=== PATIENT | female | born 1975 | race Asian ===

== ENCOUNTER 2020-05-15 00:45 | Emergency (ER) | payer MEDICAID ==
--- NOTE | 2020-05-15 01:08 | EDM.PDOC ---
ED HPI GENERAL MEDICAL PROBLEM - General Chief Complaint: ENT Problem Stated Complaint: SOMETHING IN RIGHT EAR Time Seen by Provider: 05/15/20 00:55 - History of Present Illness INITIAL COMMENTS - FREE TEXT/NARRATIVE: HISTORY AND PHYSICAL: History of present illness: Is a 45-year-old [place] female who presents ER today complaining of foreign body sensation/bug in her right ear canal x1 to 2 days. Patient denies any rece nt fevers, shakes, chills, nausea, vomiting, diarrhea. Patient has no known drug allergies. Review of systems: As per history of present illness and below otherwise all systems reviewed and negative. Past medical history: As per history of present illness and as reviewed below otherwise noncontributory. Surgical history: As per history of present illness and as reviewed below otherwise nonc ontributory. Social history: No reported history of drug or alcohol abuse. Family history: As per history of present illness and as reviewed below otherwise noncontributory. Physical exam: Constitutional: Patient is oriented to person, place, and time. Appears well- developed and well-nourished. No distress. HEENT: Moist mucous membranes Head: Normocephalic and atraumatic Eyes: Right eye exhibits no discharge. Left eye exhibits no discharge. No scleral icterus Neck: Normal range of motion. No tracheal deviation present. Cardiovascular: Normal rate and regular rhythm. Pulmonary: Effort normal, no respiratory distress. Abdominal: No distention Musculoskeletal: Normal range of motion Neurologic: Alert and oriented to person, place and time. Skin: [place], warm and dry. Psychiatric: Normal mood and affect. Behavior is normal. Judgment and thought content normal. Nursing note and vital signs have been reviewed Patient's ER physical exam is significant for a small pustule inside her right ear canal at the 9 o'clock position. There is no foreign body identified. There is minuscule amount of wax within the ear canal. Patient's tympanic membrane is pearly mckenna without any erythema or evidence of infection. This patient was seen and evaluated during the 2019 SARS-CoV-2 novel coronavirus pandemic period. Community viral transmission is ongoing at time of this enc ounter and the emergency department is operating under pandemic response procedures. Assessment and plan: 45-year-old female who presents ER today concerned about foreign body sensation in her right ear. On exam it appears that the patient has a small pustule inside her right ear canal. Patient has no evidence of [place] syndrome. Patient will be treated for a pustule with Bactrim DS 2 tabs p.o. twice daily x10 days. Reassessment at the time of disposition demonstrates that the patient is in no acute distress. The patient has remained stable throughout the entire ED visit and is without objective evidence for acute process requiring urgent intervention or hospitalization. The patient is stable for discharge, counseling is provided as documented above, discussed symptomatic treatment and specific conditions for return. I have spoken with the patient/caregiver and discussed todays findings, in addition to providing specific details for the plan of care. Questions are answe red and there is agreement with the plan. Definitive disposition and diagnosis as appropriate pending reevaluation and review of above. - Related Data Allergies Allergy/AdvReac Type Severity Reaction Status Date / Time No Known Allergies Allergy Verified 05/15/20 01:01 Home Meds: Home Meds Sulfamethoxazole/Trimethoprim [Bactrim Ds Tablet] 2 each PO BID #40 tablet 05/15/20 [Rx] Past Medical History - Past Health History Medical/Surgical History: Denies Medical/Surgical History Social & Family History - Tobacco Use Tobacco Use Status *Q: Never Tobacco User Second Hand Smoke Exposure: No - Caffeine Use Caffeine Use: Reports: Soda - Recreational Drug Use Recreational Drug Use: No ED ROS GENERAL - Review of Systems Review Of Systems: See Below ED EXAM, GENERAL - Physical Exam Exam: See Below Course - Vital Signs Last Recorded V/S: Last Vital Signs Temp 97.9 F 05/15/20 00:59 Pulse 81 05/15/20 00:59 Resp 14 05/15/20 00:59 BP 108/66 05/15/20 00:59 Pulse Ox 98 05/15/20 00:59 - Orders/Labs/Meds Orders: Active Orders 24 hr Category Date Time Status Sulfamethoxazole/Trimethoprim [Septra DS] Med 05/15/20 01:04 Once 2 tab PO ONETIME ONE Departure - Departure Time of Disposition: 01:06 Disposition: Home, Self-Care 01 Clinical Impression: Abscess of skin and subcutaneous tissue Qualifiers: Site of cutaneous abscess: other site Qualified Code(s): L02.818 - Cutaneous abscess of other sites - Discharge Information Instructions: Skin Abscess Referrals: PCP,Not In Area [Primary Care Provider] - Additional Instructions: You were seen and evaluated in the ER today secondary to a foreign body sensation to your right ear canal. On exam there is no foreign body however there is a small pustule that is tender to palpation with the autoscope. Patient will be started on Bactrim DS 2 tablets twice a day for 10 days. Please follow-up with your family doctor in 1 week for reevaluation. The following information is given to patients seen in the emergency department who are being discharged to home. This information is to outline your options for follow-up care. We provide all patients seen in our emergency department with a follow-up referral. The need for follow-up, as well as the timing and circumstances, are variable depending upon the specifics of your emergency department visit. If you don't have a primary care physician on staff, we will provide you with a referral. We always advise you to contact your personal physician following an emergency department visit to inform them of the circumstance of the visit and for follow-up with them and/or the need for any referrals to a consulting specialist. The emergency department will also refer you to a specialist when appropriate. This referral assures that you have the opportunity for follow-up care with a specialist. All of these measure are taken in an effort to provide you with optimal care, which includes your follow-up. Under all circumstances we always encourage you to contact your private physician who remains a resource for coordinating your care. When calling for follow-up care, please make the office aware that this follow-up is from your recent emergency room visit. If for any reason you are refused follow-up, please contact the [facility] Emergency Department at and asked to speak to the emergency department charge nurse. [facility] - Primary Care [address] [place] [address] [id number] [address] [address] Sepsis Event Note (ED) - Evaluation Sepsis Screening Result: No Definite Risk - Focused Exam Vital Signs: Vital Signs Temp Pulse Resp BP Pulse Ox 05/15/20 00:59 97.9 F 81 14 108/66 98 - My Orders Last 24 Hours: My Active Orders 05/15/20 01:04 Sulfamethoxazole/Trimethoprim [Septra DS] 2 tab PO ONETIME ONE - Assessment/Plan Last 24 Hours: My Active Orders 05/15/20 01:04 Sulfamethoxazole/Trimethoprim [Septra DS] 2 tab PO ONETIME ONE
[2020-05-15] MEDS: Sulfamethoxazole/Trimethoprim 800-160 MG Tab PO ONE (01:12)
== END 2020-05-15 01:14 | disposition home or self-care (01) ==
LOC: MW.ED 00:45
DX: H66.41 Suppurative otitis media, unspecified, right ear (principal)
CPT/HCPCS: 99282; A9270

== ENCOUNTER 2021-07-11 13:01 | Observation (INO) | payer MEDICAID ==
[2021-07-11 13:54] LABS: BLOOD UREA NITROGEN,BUN 8 mg/dL (7.0-18.0); CARBON DIOXIDE,CO2 23.2 mmol/L (21.0-32.0); CHLORIDE,CL 100 mmol/L (98-107); GLUCOSE RANDOM 81 mg/dL (74-106); POTASSIUM,K 3.7 mmol/L (3.5-5.1); SODIUM,NA 136 mmol/L (136-145)
[2021-07-11] MEDS ORDERED: Sodium Chloride 0.9% 1,000 ML IV ONE (15:41)
[2021-07-11] MEDS ORDERED: Ondansetron 4 MG/2 ML SDV ONE (17:41)
[2021-07-11] MEDS ORDERED: fentaNYL 100 MCG/2 ML SDV ONE ×2 (17:41→18:47)
[2021-07-11] MEDS ORDERED: Propofol 200 MG/20 ML SDV ONE (17:41)
[2021-07-11] MEDS ORDERED: Sodium Chloride 0.9% 20 ML SDV IV PRN (17:41)
[2021-07-11] MEDS ORDERED: Sodium Chloride 0.9% 2.5 ML Syringe FLUSH PRN (17:41)
[2021-07-11] MEDS ORDERED: Dexamethasone 4 MG/ML 5 ML MDV ONE (17:41)
[2021-07-11] MEDS ORDERED: Sodium Chloride 0.9% 10 ML Syringe FLUSH PRN (17:41)
[2021-07-11] MEDS ORDERED: Midazolam 1 MG/ML 2 ML SDV ONE (17:41)
[2021-07-11] MEDS ORDERED: ceFAZolin 2 GM in Premix Bag 1 BAG IV ONE (17:41)
[2021-07-11] MEDS ORDERED: Lidocaine 1% 5 ML VIAL ONE (17:41)
[2021-07-11] MEDS ORDERED: Carboprost Tromethamine 250 MCG/1 ML Amp ONE (17:50)
[2021-07-11] MEDS ORDERED: Methylergonovine 0.2 MG/1 ML Amp ONE (17:51)
[2021-07-11] MEDS ORDERED: ePHEDrine 50 MG/ML SDV ONE (18:53)
[2021-07-11] MEDS ORDERED: Ketorolac 30 MG/ML SDV ONE (19:11)
[2021-07-11] MEDS ORDERED: Acetaminophen/HYDROcodone 325-5 MG Tab PO PRN ×2 (19:26)
[2021-07-11] MEDS ORDERED: Ketorolac 30 MG/ML SDV IVPUSH ONE (19:26)
[2021-07-11] MEDS ORDERED: Ondansetron 4 MG/2 ML SDV IVPUSH PRN (19:28)
[2021-07-11] MEDS ORDERED: Lactated Ringers 1,000 ML IV SCH (19:30)
[2021-07-12] MEDS ORDERED: Ibuprofen 800 MG Tab PO PRN (01:30)
[2021-07-12 06:58] LABS: BLOOD UREA NITROGEN,BUN 8 mg/dL (7.0-18.0); CARBON DIOXIDE,CO2 20.9 mmol/L (21.0-32.0); CHLORIDE,CL 102 mmol/L (98-107); GLUCOSE RANDOM 119 mg/dL (74-106); POTASSIUM,K 4.2 mmol/L (3.5-5.1); SODIUM,NA 136 mmol/L (136-145)
== END 2021-07-12 09:45 | disposition home or self-care (01) ==
LOC: MW.ED 13:01 → MW.OB 17:04
PROVIDERS: ADMIT Obstetrics & Gynecology; ATTEND Obstetrics & Gynecology
DX: O01.0 Classical hydatidiform mole (principal)
CPT/HCPCS: 36415; 59812; 71045; 76817; 80048; 80053; 84702; 84703; 85025; 86850; 86900; 86901; 86920; 99285; A9270; G0378; J0690; J1100; J2210; J2250; J2704; J3010; J7030; 01965; J1885; J2405

== ENCOUNTER 2021-08-26 12:43 | Emergency (ER) | payer MEDICAID ==
[2021-08-26] MEDS ORDERED: Sodium Chloride 0.9% 1,000 ML IV ONE (16:19)
[2021-08-26 17:02] LABS: BLOOD UREA NITROGEN,BUN 12 mg/dL (7.0-18.0); CHLORIDE,CL 103 mmol/L (98-107); GLUCOSE RANDOM 85 mg/dL (74-106); POTASSIUM,K 3.5 mmol/L (3.5-5.1); SODIUM,NA 136 mmol/L (136-145)
[2021-08-26] MEDS ORDERED: Iopamidol 755 MG/ML 500 ML Multipack Bottle IVPUSH STA (18:31)
== END 2021-08-26 19:42 | disposition home or self-care (01) ==
LOC: MW.ED 12:43
DX: O01.9 Hydatidiform mole, unspecified (principal)
CPT/HCPCS: 36415; 71260; 74177; 76830; 80053; 81001; 81025; 84702; 85025; 99284; Q9967

== ENCOUNTER 2022-07-01 15:01 | Emergency (ER) | payer BC, MEDICAID ==
[2022-07-01] MEDS ORDERED: Sodium Chloride 0.9% 2.5 ML Syringe FLUSH PRN (16:23)
[2022-07-01] MEDS ORDERED: Sodium Chloride 0.9% 10 ML Syringe FLUSH PRN (16:23)
[2022-07-01 17:34] LABS: CARBON DIOXIDE,CO2 27.9 mmol/L (21.0-32.0); POTASSIUM,K 3.9 mmol/L (3.5-5.1)
== END 2022-07-01 19:35 | disposition home or self-care (01) ==
LOC: MW.ED 15:01
DX: N64.4 Mastodynia (principal)
CPT/HCPCS: 36415; 71260; 74177; 80053; 81001; 85025; 99284; J3490; 99283

== ENCOUNTER 2023-02-19 20:18 | Emergency (ER) | payer MEDICAID ==
[2023-02-19 22:47] LABS: CORONAVIRUS COVID-19 NAA NEGATIVE (NEGATIVE); INFLUENZA A NAA NEGATIVE (NEGATIVE); INFLUENZA B NAA NEGATIVE (NEGATIVE); RESPIRATORY SYNCYTIAL VIR NAA NEGATIVE (NEGATIVE)
[2023-02-20] MEDS ORDERED: Sodium Chloride 0.9% 2.5 ML Syringe FLUSH PRN (00:06)
[2023-02-20] MEDS ORDERED: Sodium Chloride 0.9% 10 ML Syringe FLUSH PRN (00:06)
[2023-02-20] MEDS ORDERED: diphenhydrAMINE 50 MG Cap PO ONE (00:08)
[2023-02-20] MEDS ORDERED: Ibuprofen 600 MG Tab PO ONE (00:08)
[2023-02-20 01:27] LABS: A/G RATIO 0.8 (0.9-1.6); ALBUMIN 3.7 g/dL (3.4-5.0); BILIRUBIN TOTAL 0.3 mg/dL (0.2-1.0); CALCIUM 8.5 mg/dL (8.5-10.1); CARBON DIOXIDE,CO2 27.4 mmol/L (21.0-32.0); CREATININE 0.8 mg/dL (0.6-1.0); EST CRCL DRUG DOSING (CG) 63.12 mL/min; POTASSIUM,K 4.1 mmol/L (3.5-5.1); PROTEIN TOTAL,TP 8.2 g/dL (6.4-8.2)
[2023-02-20] MEDS ORDERED: Iopamidol 755 MG/ML 500 ML Multipack Bottle IVPUSH ONE (02:19)
[2023-02-20 02:25] LABS: HEMATOCRIT 37.9 % (37.0-47.0); HEMOGLOBIN 12.9 g/dL (12.0-16.0); MEAN CORPUSCULAR HEMOGLOBIN 29.9 pg (28.0-32.0); MEAN CORPUSCULAR VOLUME 87.7 fL (83.0-99.0); MEAN PLATELET VOLUME 8.9 fL (9.4-12.3); PLATELET COUNT,PLT 283 K/uL (150-400); RED BLOOD CELL COUNT 4.32 M/uL (4.10-5.30); WHITE BLOOD CELL COUNT,WBC 7.59 K/uL (3.9-11.3)
[2023-02-20 02:26] LABS: BASOPHILS PERCENT AUTO 0.7 % (0.0-1.0); EOSINOPHILS PERCENT AUTO 2.5 % (0.0-6.0); MONOCYTES PERCENT AUTO 6.9 % (0.0-8.0); NEUTROPHILS PERCENT AUTO 53.6 % (41.0-71.0)
[2023-02-20 02:32] LABS: IMMATURE GRAN PERCENT AUTO 0.3 % (0.0-0.4)
[2023-02-20 02:35] LABS: BASOPHILS ABSOLUTE AUTO 0.05 K/uL (0.00-0.20); EOSINOPHILS ABSOLUTE AUTO 0.19 K/uL (0.00-0.45); LYMPHOCYTES ABSOLUTE AUTO 2.73 K/uL (1.00-4.80); MONOCYTES ABSOLUTE AUTO 0.52 K/uL (0.00-0.80); NEUTROPHILS ABSOLUTE AUTO 4.08 K/uL (1.80-7.70)
[2023-02-20 02:36] LABS: IMMATURE GRAN ABSOLUTE AUTO 0.02 K/uL (0.00-0.05)
== END 2023-02-20 04:50 | disposition home or self-care (01) ==
LOC: MW.ED 20:18
DX: R07.9 Chest pain, unspecified (principal); R05.9 Cough, unspecified; Z20.822 Contact with and (suspected) exposure to COVID-19
CPT/HCPCS: 0241U; 36415; 71275; 80053; 83690; 84484; 85025; 85379; 93005; 99285; A9270; J3490; Q9967; 99284